=== PATIENT | male | born 1995 | race Two or more races ===

== ENCOUNTER → 2024-11-07 | Emergency (ER) | payer OTHER ==
[~2024-11-07] VITALS: Ht 177.8 cm; Wt 115.0 kg
[2024-11-07 01:07] VITALS: BP 120/68; PULSE 68; RESP 16; TEMP 97.8; O2SAT 100
== END | disposition left against medical advice (07) ==
LOC: EMS 01:05
DX: R10.13 Epigastric pain (principal); Z53.21 Procedure and treatment not carried out due to patient leaving prior to being seen by health care provider